=== PATIENT | male | born 1995 | race Caucasian/White ===

== ENCOUNTER 2025-01-31 16:59 | Emergency (ER) | payer OTHER, SELFPAY ==
--- OUTSIDE RECORDS SUMMARY | 2025-01-30 17:45 | XMS_ITS | Encounter Summary ---
Author Organization [facility] Healthcare Address [address] [place] [id number] Care Team Providers Care Medical Claims Representative Name Role Phone Vicente Alberts MD Primary Care Provider [phone] Reason for Visit * Reason Comments Testicle Pain SHELBY testicular achin g x 1 week on and off Reports it sometimes radiates to the groin No trauma Encounter Details Date Type Department Care Team (Late st Contact Info) Description 01/30/2025 5:45 PM HAND TUBE WINDER Office Visit [facility] Convenient Care at [address] [address] Jessie Mantilla MEDICAL RECORDS COORDINATOR [address] [place] [address] [address] [place] [address] Scrotal pain (Primary Dx) Social History Tobacco Use Types Packs/Day Years Used Date Smoking Tobacco: Never Assessed Sex and Gender Information Value Date Recorded Sex Assigned at Not on file Legal Sex Male 7:48 AM CDT Gender Identity Not on file Sexual Orientation Not on file documented as of this encounter Last Filed Vital Signs Vital Sign Reading Time Taken Comments Blood Pressure 138/86 01/30/2025 5:36 PM HAND TUBE WINDER Pulse 76 01/30/2025 5:36 PM HAND TUBE WINDER Temperature 36.3 C (97.3 F) 01/30/2025 5:36 PM HAND TUBE WINDER Respiratory Rate 20 01/30/2025 5:36 PM HAND TUBE WINDER Oxygen Saturation 97% 01/30/2025 5:36 PM HAND TUBE WINDER Inhaled Oxygen Concentration - - Weight 120.7 kg (266 lb) 01/30/2025 5:36 PM HAND TUBE WINDER Height 175.3 cm (5' 9) 01/30/2025 5:36 PM HAND TUBE WINDER Body Mass Index 39.28 01/30/2025 5:36 PM HAND TUBE WINDER documented in this encounter Patient Instructions * Patient Instructions* Jessie Mantilla NP - 01/30/2025 5:45 PM HAND TUBE WINDER If you have no improvement or worsening of your symptoms, please follow up with your Primary Care Provider, Convenient Care and or Emergency Room. I strive to provide you with EXCELLENT service. You may receive a survey after your visit today. If you cannot rate your experience as EXCELLENT, please let us know how we can improve and better meet your needs. Thank you for choosing [facility]! It was my pleasure to see you today, I hope you feel better soon! Jessie Mantilla METHODS EXAMINER TUBE WINDER * Attachments The following attachments cannot be sent through Care Everywhere. * Scrotal Pain (AfterCare(R) Instructions(ER/ED)) (Serbian) documented in this encounter Progress Notes * Jessie Mantilla NP - 01/30/2025 5:45 PM CST Images from the original note were not included. Subjective/Objective Patient ID: Deangelo Xiao is a 29 y.o. male. This patient has verbally consented to recording this visit in order to utilize AI technology in generating this note. Chief Complaint Testicle Pain (SHELBY testicular aching x 1 week on and off /Reports it sometimes radiates to the groin /No trauma ) History of Present Illness Deangelo Xiao is a 29 year old male who presents with intermittent scrotal pain. He describes a dull, aching, nonradiating scrotal pain, similar to a constant light impact, intermittent in nature. The pain is not localized to one side. He notes no bulging, drainage, sores, or changes in scrotal appearance and has never had prior problems in this area. He has not changed sexual partners recently and denies symptoms suggestive of sexually transmitted infection. He sits for prolonged periods but does not think this or his stable weight are related to his symptoms. Review of Systems All other systems reviewed and are negative. Physical Exam GENITOURINARY: No inguinal hernia. Scrotum without lesions. Physical Exam Exam conducted with a nail galvanizer present (Vida Lopez LPN). Constitutional: Appearance: Normal appearance. He is normal weight. HENT: Head: Normocephalic. Right Ear: External ear normal. Left Ear: External ear normal. Mouth/Throat: Mouth: Mucous membranes are moist. Eyes: Pupils: Pupils are equal, round, and reactive to light. Cardiovascular: Rate and Rhythm: Normal rate. Pulmonary: Effort: Pulmonary effort is normal. Abdominal: Hernia: There is no hernia in the left inguinal area or right inguinal area. Genitourinary: Penis: Normal and circumcised. No swelling or lesions. Testes: Normal. Right: Mass, tenderness, swelling or testicular hydrocele not present. Left: Mass, tenderness, swelling or testicular hydrocele not present. Epididymis: Right: Normal. Left: Normal. Skin: Capillary Refill: Capillary refill takes less than 2 seconds. Neurological: General: No focal deficit present. Mental Status: He is alert and oriented to person, place, and time. Psychiatric: Mood and Affect: Mood normal. Behavior: Behavior normal. Vitals: 01/30/25 1736 BP: 138/86 Pulse: 76 Resp: 20 Temp: 36.3 ??C (97.3 ??F) SpO2: 97% Weight: 120.7 kg (266 lb) Height: 175.3 cm (5' 9) No results found. No past medical history on file. No current outpatient medications on file. Allergies Allergen Reactions Penicillins Hives Social History Tobacco Use Smoking status: None Smokeless tobacco: None Substance and Sexual Activity Drug use: None Sexual activity: None Alcohol Use: Not At Risk (05/01/2019) Received from [facility] Health AUDIT-C Frequency of Alcohol Consumption: Never Average Number of Drinks: Not on file Frequency of Binge Drinking: Not on file Past Surgical History: Procedure Laterality Date TYMPANOSTOMY TUBE PLACEMENT Procedures Assessment/Plan Results No results found for this or any previous visit (from the past 4 hours). Assessment & Plan Scrotal pain Intermittent scrotal pain radiating to the groin. Differential includes inguinal hernia and epididymitis. No hernia evident on exam. - Ordered scrotal ultrasound to evaluate for inguinal hernia or epididymitis. - Referred to primary care physician for further management and follow-up. - Tylenol or motrin for pain. Diagnoses and all orders for this visit: Scrotal pain (Primary) Comments: intermittent Disposition Treatment plan including expectations, follow up, and return precautions discussed with patient/parent, verbalizes understanding. Medication dosage, use, and potential adverse reactions discussed with patient/parent. Advised to follow up with PCP if symptoms do not resolve as expected or sooner if condition worsens. Signs/symptoms warranting ER evaluation reviewed. Patient and/or guardian was given an opportunity to ask questions, questions answered. Jessie Mantilla NP TUBE WINDER documented in this encounter Plan of Treatment Not on file documented as of this encounter Visit Diagnoses Diagnosis Scrotal pain- Primary Unspecified disorder of male genital organs documented in this encounter Care Teams Medical Claims Representative Relationship Specialty Start Date End Date Vicente Alberts MD PCP - General Family Medicine 07/27/22 documented as of this encounter
--- NOTE | ~2025-01-31 | US_ITS ---
EXAMINATION: US scrotum doppler, 01/31/2025 17:11 ANIMAL ASSISTED THERAPIST HISTORY: TORSION? Comparison: None Technique: Corea-scale and color Doppler images were obtained of the testes with spectral analysis to document arterial and venous flow. Findings: Right Testicle:Right testicle 3 x 1.6 x 2.7 cm, microlithiasis, normal flow. Right Epidiymis:Unremarkable. Normal flow. Left Testicle: Left testicle 3.9 x 1.8 x 2.8 cm, microlithiasis, normal flow Left Epidiymis: Unremarkable. Normal flow. Hydrocele: None . Varicocele: None Scrotum: Unremarkable. No skin thickening. Impression: 1. No acute process. 2. Microlithiasis. Follow-up recommended to assess Reviewed, dictated and finalized at location P. AL ASSISTED THERAPIST Impression: 1. No acute process. 2. Microlithiasis. Follow-up recommended to assess
[2025-01-31 17:00] VITALS: BP 167/86; PULSE 72; RESP 16; TEMP 37; O2SAT 99
--- NOTE | 2025-01-31 18:08 | ED_ITS ---
HPI - Male Genitourinary General Chief complaint: Urogenital-Male Stated complaint: groin pain Time Seen by Provider: 01/31/25 17:12 Source: patient Mode of arrival: ambulatory Limitations: no limitations History of Present Illness HPI Narrative: This is a 29-year-old male with history of YVONNE who presents to the ED for lower abdominal/Sarah pain. Patient states for the last 3 weeks he has been having vague pain to his groin that over the last few days has began to radiate to his bladder. He has had urinary urgency but denies dysuria, hematuria. He has never had this problem before. Denies fevers, chills, nausea vomiting. Related Data Allergies Allergy/AdvReac Type Severity Reaction Status Date / Time Penicillins Allergy Intermediate Hives Verified 01/31/25 17:02 Review of Systems Review of Systems: Gen.: Denies fevers or chills Eyes: Denies eye pain or visual change ENT: Denies congestion Respiratory: Denies shortness of breath or cough CV: Denies chest pain or palpitations GI: Denies abdominal pain nausea, emesis or diarrhea as per HPI Musculoskeletal: Denies back pain or muscle pain Neuro: Denies numbness, tingling, weakness or focal weakness Skin: Denies rash Except as documented, all other systems reviewed and negative Exam Narrative: APPEARANCE: No acute distress, nontoxic, resting in bed EYES: EOMI HEENT: Normocephalic, atraumatic, OMM RESPIRATORY: No respiratory distress Clear to auscultation bilaterally with no rhonchi wheezing or rales. CARDIOVASCULAR: Regular rate and rhythm without murmurs rubs or gallops. ABDOMINAL: Soft, nontender, nondistended, no rebound or guarding : Assistant Clinical Director present. No testicular tenderness to palpation, discoloration. No epididymal tenderness to palpation. No hernias palpated. MUSCULOSKELETAl: Moves all extremities. No clubbing, cyanosis or edema. NEURO: Awake and alert. Following commands, speech normal, no focal deficits SKIN:: Warm, dry. No rashes lesions or abrasions PSYCHIATRIC: Normal affect/mood, Course Vital Signs Vital signs: Vital Signs Temperature 98.6 F 01/31/25 17:00 Pulse Rate 72 01/31/25 17:00 Respiratory Rate 16 01/31/25 17:00 Blood Pressure 167/86 H 01/31/25 17:00 Pulse Oximetry 99 01/31/25 17:00 Temperature 97.9 F 01/31/25 18:49 Pulse Rate 73 01/31/25 18:49 Respiratory Rate 18 01/31/25 18:49 Blood Pressure 135/80 01/31/25 18:49 Pulse Oximetry 96 01/31/25 18:49 MDM MDM Narrative Medical decision making narrative: 29-year-old male Presenting for bilateral groin pain and suprapubic abdominal pain. On initial evaluation patient was in no acute distress afebrile, hemodynamic stable. Differentials include but are not limited to: UTI, hernia, epididymitis, varicocele, hydrocele Notable exam findings: Testicles nontender, no overlying skin changes no hernia palpated I personally reviewed the patient's lab result. Notable lab findings: UA clear Ultrasound scrotum showed no evidence of torsion The source the patient's discomfort is unclear at this time. He was advised to take Tylenol and ibuprofen and was educated on azo. He was advised follow-up with his PCP as scheduled. Patient was agreeable to this plan. Given strict return precautions. Differential Diagnosis Differential Diagnosis: UTI, hernia, epididymitis, varicocele, hydrocele Lab Data Labs: Lab Results 01/31/25 Range/Units 18:03 Urine Color Yellow (Yellow) Urine Appearance Clear (Clear) Urine pH 6.0 (5.0-9.0) Ur Specific [place] 1.008 (1.001-1.035) Urine Protein Negative (Negative) mg/dL Urine Glucose (UA) Negative (Negative) mg/dL Urine Ketones Negative (Negative) mg/dL Ur Blood (Man) Negative (Negative) Urine Nitrate Negative (Negative) Urine Bilirubin Negative (Negative) Urine Urobilinogen 0.2 (<2.0) mg/dL Leukocyte Esterase Rfl Negative (Negative) NAIN/UL Imaging Data Radiologist's impression: ITS Impressions Scrotum Ultrasound 01/31/25 17:47 Impression: 1. No acute process. 2. Microlithiasis. Follow-up recommended to assess Discharge Plan Discharge Clinical Impression: Bilateral groin pain Patient Disposition: Home Condition: Stable Instructions: Antibiotic Form, Groin Pain (ED) Additional Instructions: Ultrasound of your testicles was reassuring and showed no evidence of torsion, hydrocele, varicocele or hernias. Urinalysis was normal. It is unclear what the source of your symptoms are. You were given a referral to Dr. Jones, Family Medicine, to establish care, follow-up with his office the next week for re- evaluation. Return to the ED for any new or worsening symptoms. Patient Language: French Follow-up/Referrals: PHYSICIAN NOT ON STAFF,NONSTAFF [Primary Care Provider] Samuel Jones MD [Physician, Family Practice]
[2025-01-31 18:19] LABS: Add Urine Microscopic? NO; Appearance Urine Clear (Clear); Glucose Urine UA Negative (Negative); Leukocyte Esterase Ur Negative LEU/UL (Negative); Nitrate Urine Negative (Negative); Specific Grav Ur 1.008 (1.001-1.035)
--- OUTSIDE RECORDS SUMMARY | 2025-01-31 18:33 | XMS_ITS | Clinical Summary ---
Author Organization [facility] Address [address] [place] [address] Care Team Providers Care Press Clippings Cutter And Paster Name Role Phone Vicente Alberts MD Primary Care Provider [phone] Allergies Active Allergy Reactions Criticality Noted Date Comments Penicillin V Rash Low 04/07/2019 Medications Multiple Vitamin (MULTIVITAMIN ADULT OR) Take 1 tablet by mouth daily. Active ondansetron (ZOFRAN) 4 MG tablet Take 1 tablet (4 mg total) by mouth every 8 (eight) hours as needed for Nausea. 20 tablet 1 2 Active Additional Information Patient not taking.Reported on 03/04/2022 HYDROcodone-miriam taminophen (NORCO) 7.5-325 MG tabletIndicatio ns:Acute Pain < 7 Day Supply Take 1 tablet by mouth every 6 (six) hours as needed (Moderate Pain). Indications: Acute Pain < 7 Day Supply 20 tablet 2 Active Additional Information Patient not taking.Reported on 03/04/2022 oxyCODONE-aceta minophen (PERCOCET) 5-325 MG tabletIndicatio ns:Acute Pain < 7 Day Supply Take 1-2 tablets by mouth every 4 (four) hours as needed (Severe Pain). Indications: Acute Pain < 7 Day Supply 20 tablet 2 Active Additional Information Patient not taking.Reported on 03/04/2022 Active Problems Problem Noted Date Diagnosed Date S/P arthroscopy of right shoulder 01/28/2022 Impingement syndrome of right shoulder Osteoarthritis of right acromioclavicular joint 12/05/2021 Paralabral cyst of right shoulder, initial encou nter 12/05/2021 Superior glenoid labrum lesi on of right shoulder, initial encounter 12/05/2021 Acute pain of right shoulder 03/18/2021 Resolved Problems Problem Noted Date Diagnosed Date Resolved Date Routine general medical exam ination at a health care facility 03/18/2021 03/25/2021 Immunizations Immunization Administration Dates Next Due Dtap (Generic) 1993 Dtp/Hib 04/14/1995,04/11/1994,02/02/1994 Hepatitis B Pediatric 04/11/1994,1993,09/16 Hib (Generic) 1993 Influenza (Generic) 12/15/2013 MMR (Generic) 08/21/1998,10/03/1994 Meningococcal Vac A,C,Y,W-135 Sc 01/24/2014,03/2007 Opv 04/11/1994,01/31/1994,1993 Tdap (Generic) 11/29/2015,07/19/2007 Family History Medical History Relation Comments Diabetes Father Alzheimer's disease Maternal Grandfather Hypertension Maternal Grandmother Hyperthyroidism Mother Cancer Paternal Grandfather lung Heart Disease Paternal Grandmother Diabetes Sister Relation Status Comments Father Alive Maternal Grandfather Maternal Grandmother Alive Mother Alive Paternal Grandfather Paternal Grandmother Sister Alive Social History Tobacco Use Types Packs/Day Years Used Date Smoking Tobacco: Never Passive Smoke Exposure: Never Smokeless Tobacco: Never Tobacco Cessation:Counseling Given: No Comments:Never Smoked Alcohol Use Standard Drinks/Week Comments Not Currently 0 (1 standard drink = 0.6 oz pur e alcohol) NA PHQ-2 Answer Date Recorded Patient Health Questionnaire-2 Score 0 03/04/2022 Sex and Gender Information Value Date Recorded Sex Assigned at Not on file Legal Sex Male 8:03 PM CDT Gender Identity Not on file Sexual Orientation Not on file Last Filed Vital Signs Vital Sign Reading Time Taken Comments Blood Pressure 140/88 03/04/2022 2:32 PM MANAGER LAND Pulse 71 03/04/2022 2:32 PM MANAGER LAND Temperature 36.6 C (97.9 F) 03/04/2022 2:32 PM MANAGER LAND Respiratory Rate 18 03/04/2022 2:32 PM MANAGER LAND Oxygen Saturation 98% 03/04/2022 2:32 PM MANAGER LAND Inhaled Oxygen Concentration - - Weight 114 kg (251 lb 6.4 oz) 03/04/2022 2:32 PM MANAGER LAND Height 172.7 cm (5' 8) 03/04/2022 2:32 PM MANAGER LAND Body Mass Index 38.23 03/04/2022 2:32 PM MANAGER LAND Plan of Treatment Health Maintenance Due Date Last Done Comments Hepatitis C 09/25/2011 HPV Vaccines (1 - 3-dose SCDM series) 2020 Annual Physical 03/18/2022 03/18/2021 COVID-19 Vaccine ( season) 2024 12/19/2020, 11/26/2020 Influenza Adult (#1) 2024 12/15/2013 DTaP, Tdap and Td Vaccines (4 - Td or Tdap) 11/28/2025 11/29/2015, 07/19/2007, 04/14/1995, Additional history exists Hepatitis B Vaccines Completed 04/11/1994, 1993, 1993 Meningococcal Vaccine Aged Out 01/24/2014, 008 No longer eligible based on patient's age to complete this topic Hepatitis A Vaccines Aged Out No long er eligible based on patient's age to complete this topic Meningococcal B Vaccine Aged Out No l onger eligible based on patient's age to complete this topic Pneumococcal Vaccine: Pediatrics (0 to 5 Years) and At-Risk Patients (6 to 49 Years) Aged Out No longer eligible based on patient's age to complete this topic RSV Immunizations Under 20 Months Aged Out No longer eligible based on patient's age to complete this topic Medical Devices Implanted Type Area Coach Driver Device Identifier Shelf Expiration Date Model / Serial / Lot Device Fixation [employer] Bi[employer]posite Distal Biceps Repair - [id number] Implanted:Qty: 1 on 01/29/2022 by Rene Baird MD at [facility] [place] Screw Right: Shoulder [employer] [id number] 11/16/2023 [id number] / / [id number] Insurance [facility] Care Teams Press Clippings Cutter And Paster Relationship Specialty Start Date End Date Vicente Alberts MD [address] [address] PCP - General 11/29/15
--- OUTSIDE RECORDS SUMMARY | 2025-01-31 18:33 | XMS_ITS | Clinical Summary ---
Author Organization [facility] Care Team Providers Care Bung Sewer Name Role Phone Unavailable Primary Care Provider Unavailabl e Social History Tobacco Use Types Packs/Day Years Used Date Smoking Tobacco: Never Assessed Sex and Gender Information Value Date Recorded Sex Assigned at Not on file Legal Sex Male 8:08 AM FAMILY PRACTICE PHYSICIAN ASSISTANT Gender Identity Not on file Sexual Orientation Not on file Plan of Treatment Health Maintenance Due Date Last Done Comments Hepatitis C Virus (HCV) Screening 1993 TdaP Immunization 1993 Hepatitis B Immunization (1 of 3 - 19+ 3-dose series) 2012 Human Papillomavirus (HPV) Immunization (1 - 3-dose SCDM series) 2020 Influenza Immunization (#1) 2024 SARS-COV-2 Immunization ( season) 2024 Respiratory Syncytial Virus (RSV) Immunization (Adult) (1 - 1-dose 75+ series) 2068 Meningococcal Immunization (ACWY) Aged Out No longer eligible based on patient's age to complete this topic Pneumococcal Immunization Combined Aged Out No longer eligible based on patient's age to complete this topic Rotavirus Immunization Aged Out No lo nger eligible based on patient's age to complete this topic
--- OUTSIDE RECORDS SUMMARY | 2025-01-31 18:33 | XMS_ITS | Clinical Summary ---
Author Organization [facility] Address [address] [facility] [place] [address] Care Team Providers Care Trading Specialist Name Role Phone Unavailable Primary Care Provider Unavailabl e Source Comments [facility],non-owned Affiliates and Associated Physician Practices is amultiple site organization consisting of ambulatory clinics and hospital sitesin [place], [place] and [place]. This disclosure is being madepursuant to the Care Everywhere program and may not contain all information available regarding this patient. Last updated 17.[facility] Allergies Active Allergy Reactions Criticality Noted Date Comments Penicillins Itching 02/15/2021 Medications * Be aware that medications may not be up to date on this document. Alwaysverify current medications with the patient. oxymetazoline (AFRIN) 0.05 % nasal spray [place] 1 (one) spray into each nostril 2 times daily 37 mL 02/15/2021 Active loratadine (CLARITIN) 10 MG tablet Take 1 (one) tablet by mouth once daily 30 tablet 02/15/2021 Active Social History Tobacco Use Types Packs/Day Years Used Date Smoking Tobacco: Never Smokeless Tobacco: Never Alcohol Use Standard Drinks/Week Comments Never 0 (1 standard drink = 0.6 oz pur e alcohol) AUDIT-C Answer Date Recorded Frequency of Alcohol Consumption Never 05/01/2019 Average Number of Drinks Not on file 020 Frequency of Binge Drinking Not on file 04/16 Sex and Gender Information Value Date Recorded Sex Assigned at Not on file Legal Sex Male 3:16 PM CDT Gender Identity Not on file Sexual Orientation Not on file Last Filed Vital Signs Vital Sign Reading Time Taken Comments Blood Pressure 150/90 02/15/2021 8:23 AM SOILS ANALYST Pulse 76 02/15/2021 8:23 AM SOILS ANALYST Temperature 36.7 C (98.1 F) 02/15/2021 8:23 AM SOILS ANALYST Respiratory Rate 16 02/15/2021 8:23 AM SOILS ANALYST Oxygen Saturation 98% 02/15/2021 8:23 AM SOILS ANALYST Inhaled Oxygen Concentration - - Weight 117.9 kg (260 lb) 02/15/2021 8:23 AM SOILS ANALYST Height - - Body Mass Index - - Plan of Treatment Health Maintenance Due Date Last Done Comments HIV SCREENING 2008 HEPATITIS C SCREENING 09/20/2011 DTAP/TDAP/TD VACCINES (1 - Tdap) 2012 HEPATITIS B VACCINE (1 of 3 - 19+ 3-dose series) 2012 HPV VACCINE (1 - 3-dose SCDM series) 2020 DEPRESSION SCREENING 02/17/2024 COVID-19 VACCINE (1 - 2024-2 6 season) 2024 INFLUENZA VACCINE (#1) 2024 ZOSTER VACCINE (1 of 2) 09/25/2043 HIB VACCINE Aged Out No longer eligi ble based on patient's age to complete this topic MENINGOCOCCAL (Group B) VACC INE SHARED DECISION-MAKING Aged Out No longer eligibl e based on patient's age to complete this topic MENINGOCOCCAL GROUPS A/C/Y/W VACCINE Aged Out No longer eligible b ased on patient's age to complete this topic PNEUMOCOCCAL VACCINE Aged Out No long er eligible based on patient's age to complete this topic Insurance [employer] PAYOR GENERIC Comp PAYOR GENERIC
--- OUTSIDE RECORDS SUMMARY | 2025-01-31 18:33 | XMS_ITS | Clinical Summary ---
Author Organization [address] [address] Care Team Providers Care Plant Technical Specialist Name Role Phone Vicente Alberts MD Primary Care Provider [phone] Allergies Active Allergy Reactions Criticality Noted Date Comments Penicillins Hives Medium 07/27/2022 Medications No known medications Active Problems No known active problems Encounters Date Type Department Care Team Description 01/30/2025 5:45 PM ORACLE ASCP CONSULTANT Office Visit [facility] Convenient Care at [address] [address] Jessie Mantilla, TAMMY Scrotal pain (Primary Dx) from Last 3 Months Surgical History Surgery Date Site/Laterality Comments TYMPANOSTOMY TUBE PLACEMENT Social History Tobacco Use Types Packs/Day Years Used Date Smoking Tobacco: Never Assessed Sex and Gender Information Value Date Recorded Sex Assigned at Not on file Legal Sex Male 7:48 AM CDT Gender Identity Not on file Sexual Orientation Not on file Last Filed Vital Signs Vital Sign Reading Time Taken Comments Blood Pressure 138/86 01/30/2025 5:36 PM ORACLE ASCP CONSULTANT Pulse 76 01/30/2025 5:36 PM ORACLE ASCP CONSULTANT Temperature 36.3 C (97.3 F) 01/30/2025 5:36 PM ORACLE ASCP CONSULTANT Respiratory Rate 20 01/30/2025 5:36 PM ORACLE ASCP CONSULTANT Oxygen Saturation 97% 01/30/2025 5:36 PM ORACLE ASCP CONSULTANT Inhaled Oxygen Concentration - - Weight 120.7 kg (266 lb) 01/30/2025 5:36 PM ORACLE ASCP CONSULTANT Height 175.3 cm (5' 9) 01/30/2025 5:36 PM ORACLE ASCP CONSULTANT Body Mass Index 39.28 01/30/2025 5:36 PM ORACLE ASCP CONSULTANT Plan of Treatment Health Maintenance Due Date Last Done Comments Depression Screening 1993 Hepatitis C Screening 1993 Regular Well Visit/Exam 18-64 09/25/2011 HPV Vaccines (1 - 3-dose SCDM series) 2020 Covid-19 Vaccine (3 - season) 2024 12/19/2020, 11/26/2020 Influenza Vaccine (#1) 2024 12/15/2013 DTaP/Tdap/Td Vaccine (7 - Td or Tdap) 11/28/2025 11/29/2015, 07/19/2007, 04/14/1995, Additional history exists Hepatitis B Screening Completed 04/11/1994 , 1993, 1993 Varicella Vaccines Completed 08/21/1998, 10/03/1994 Pneumococcal vaccine <65 Aged Out No longer eligible based on patient's age to [place] [address] [place] [id number] [facility] Address: [facility] [id number] [place] [address] [facility] Address: [facility] [address] [address] [id number] Care Teams Plant Technical Specialist Relationship Specialty Start Date End Date Vicente Alberts MD PCP - General Family Medicine 07/27/22
[2025-01-31 18:49] VITALS: BP 135/80; PULSE 73; RESP 18; TEMP 36.6; O2SAT 96
== END 2025-01-31 18:52 | disposition home or self-care (01) ==
PROVIDERS: Emergency Medicine; Emergency Provider Student in an Organized Health Care Education/Training Program
DX: R10.32 Left lower quadrant pain (principal); R10.31 Right lower quadrant pain
CPT/HCPCS: 76870; 81003; 93976; 99284